=== PATIENT | male | born 1995 | race Caucasian/White ===

== ENCOUNTER → 2018-12-14 | Emergency (ER) | payer SELFPAY ==
[~2018-12-14] VITALS: Ht 175.3 cm; Wt 84.0 kg
[~2018-12-14] MED LIST: HYDROmorphone 1 mg/ml syringe IV PRN; HYDROmorphone inj. 0.5 MG/0.5 ML DISP.SYRIN IV PRN; ONDA4TAB12 PO; diphenhydrAMINE 50 mg/ml inj IV ONE; glycopyrrolate 0.2mg/ml inj IV ONE; metoclopramide 5 mg/ml inj IV ONE; normal saline 1000ML IV soln IVB ONE
[2018-12-14 05:17] LABS: BASOPHILS % (AUTO) 0.1 % (0-1); EOSINOPHILS # (AUTO) 0.1 X10'3 (0-0.9); EOSINOPHILS % (AUTO) 0.7 % (0-6); HEMATOCRIT 49.5 % (42.0-52.0); HEMOGLOBIN 16.9 g/dl (14.0-17.9); LYMPHOCYTES # (AUTO) 0.7 X10'3 (1.1-4.8); LYMPHOCYTES % (AUTO) 5.9 % (21-51); MEAN CORPUSCULAR HEMOGLOBIN 32.5 PG (27.0-31.0); MEAN CORPUSCULAR HGB CONC 34.2 g/dL (33.0-36.5); MEAN CORPUSCULAR VOLUME 94.9 FL (78-98); MEAN PLATELET VOLUME 7.6 FL (7.4-10.4); MONOCYTES # (AUTO) 0.5 X10'3 (0-0.9); MONOCYTES % (AUTO) 3.7 % (2-12); NEUTROPHILS # (AUTO) 11.2 X10'3 (1.8-7.7); NEUTROPHILS % (AUTO) 89.6 % (42-75); PLATELET COUNT 312 X10'3 (140-440); RED BLOOD COUNT 5.22 X10'6 (4.70-6.10); WHITE BLOOD COUNT 12.5 X10'3 (4.5-11.0)
[2018-12-14 05:31] LABS: ALANINE AMINOTRANSFERASE 38 U/L (12-78); ALBUMIN 4.4 G/DL (3.4-5.0); ALBUMIN/GLOBULIN RATIO 1.2 (1.1-1.5); ALKALINE PHOSPHATASE 115 IU/L (46-116); ANION GAP 15 (8-16); ASPARTATE AMINO TRANSFERASE 38 U/L (10-37); BLOOD UREA NITROGEN 12 MG/DL (7-18); BUN/CREATININE RATIO 11.7 (5.4-32.0); CALCIUM 9.1 MG/DL (8.5-10.1); CHLORIDE 104 MMOL/L (99-107); CREATININE 1.03 MG/DL (0.60-1.10); ETHANOL 0.157 GM/DL (0.0-0.010); GLUCOSE 95 MG/DL (70-104); LIPASE 131 U/L (73-393); POTASSIUM 3.8 MMOL/L (3.5-5.1); SODIUM 144 MMOL/L (135-145); TOTAL CARBON DIOXIDE 25.1 MMOL/L (24-32); TOTAL PROTEIN 8.1 G/DL (6.4-8.2); eGFR 89 ML/MIN
[2018-12-14 06:04] VITALS: BP 122/65
== END | disposition home or self-care (01) ==
LOC: ER 04:17
DX: R11.2 Nausea with vomiting, unspecified (principal); R10.13 Epigastric pain; F17.210 Nicotine dependence, cigarettes, uncomplicated; F10.239 Alcohol dependence with withdrawal, unspecified; Z79.899 Other long term (current) drug therapy; Y90.0 Blood alcohol level of less than 20 mg/100 ml
CPT/HCPCS: 36415; 80053; 80320; 83690; 85025; 93005; 96361; 96374; 96375; 99284; J1200; J2765; J7030; J1170; J3490

== ENCOUNTER 2020-11-04 19:17 | Emergency (ER) | payer MEDICAID ==
[~2020-11-04] VITALS: Ht 175.3 cm; Wt 81.0 kg
[~2020-11-04 19:17] MED LIST changes: -HYDROmorphone 1 mg/ml syringe IV PRN; -HYDROmorphone inj. 0.5 MG/0.5 ML DISP.SYRIN IV PRN; -diphenhydrAMINE 50 mg/ml inj IV ONE; -glycopyrrolate 0.2mg/ml inj IV ONE; -metoclopramide 5 mg/ml inj IV ONE; -normal saline 1000ML IV soln IVB ONE
[2020-11-04 19:30] VITALS: BP 124/88
== END 2020-11-04 20:32 ==
LOC: ER 19:18
DX: Z02.89 Encounter for other administrative examinations (principal)
CPT/HCPCS: 99283

== ENCOUNTER 2021-10-21 02:11 | Emergency (ER) | payer MEDICAID ==
[~2021-10-21] VITALS: Ht 175.3 cm; Wt 81.8 kg
[2021-10-21] MEDS ORDERED: ondansetron/PF 4mg/2ml inj IV ONE (03:55)
[2021-10-21] MEDS ORDERED: pantoprazole 40MG/NS 100ML BAG 100 ML IV ONE (03:55)
[2021-10-21] MEDS ORDERED: diazepam inj 5 MG/ML inj. IV ONE (03:55)
[2021-10-21] MEDS ORDERED: pantoprazole 40 MG vial IV ONE (03:55)
[2021-10-21] MEDS ORDERED: normal saline 1000ML IV soln IVB ONE ×2 (03:55)
[2021-10-21 04:47] LABS: BASOPHILS % (AUTO) 0.2 % (0-1); EOSINOPHILS % (AUTO) 0.1 % (0-6); HEMATOCRIT 44.7 % (42.0-52.0); HEMOGLOBIN 15.7 g/dl (14.0-17.9); LYMPHOCYTES # (AUTO) 0.7 X10'3 (1.1-4.8); LYMPHOCYTES % (AUTO) 5.6 % (21-51); MEAN CORPUSCULAR HEMOGLOBIN 31.4 PG (27.0-31.0); MEAN CORPUSCULAR HGB CONC 35.1 g/dL (33.0-36.5); MEAN CORPUSCULAR VOLUME 89.6 FL (78-98); MEAN PLATELET VOLUME 8.1 FL (7.4-10.4); MONOCYTES # (AUTO) 0.9 X10'3 (0-0.9); MONOCYTES % (AUTO) 7.1 % (2-12); NEUTROPHILS # (AUTO) 11.6 X10'3 (1.8-7.7); PLATELET COUNT 284 X10'3 (140-440); RED BLOOD COUNT 4.99 X10'6 (4.70-6.10); RED CELL DISTRIBUTION WIDTH 13.6 % (11.5-14.5); WHITE BLOOD COUNT 13.3 X10'3 (4.5-11.0)
[2021-10-21 05:00] LABS: ALANINE AMINOTRANSFERASE 27 U/L (12-78); ALBUMIN 3.2 G/DL (3.4-5.0); ALBUMIN/GLOBULIN RATIO 0.9 (1.1-1.5); ALKALINE PHOSPHATASE 100 IU/L (46-116); ANION GAP 11 (8-16); ASPARTATE AMINO TRANSFERASE 41 U/L (10-37); BILIRUBIN,TOTAL 2.2 MG/DL (0.1-1.0); BLOOD UREA NITROGEN 14 MG/DL (7-18); BUN/CREATININE RATIO 14.7 (5.4-32.0); CALCIUM 8.3 MG/DL (8.5-10.1); CHLORIDE 102 MMOL/L (99-107); CREATININE 0.95 MG/DL (0.60-1.10); ETHANOL < 0.010 GM/DL (0.0-0.010); GLUCOSE 105 MG/DL (70-104); LIPASE 125 U/L (73-393); POTASSIUM 3.6 MMOL/L (3.5-5.1); SODIUM 138 MMOL/L (135-145); TOTAL CARBON DIOXIDE 25.5 MMOL/L (24-32); TOTAL PROTEIN 6.6 G/DL (6.4-8.2); eGFR > 90 ML/MIN
[2021-10-21 05:18] VITALS: BP 118/65
[2021-10-21] MEDS ORDERED: ONDA8TAB13 PO (05:46)
[2021-10-21] MEDS ORDERED: CHLO25CA10 PO (05:46)
== END 2021-10-21 06:16 | disposition home or self-care (01) ==
LOC: ER 02:11
DX: F10.939 Alcohol use, unspecified with withdrawal, unspecified (principal); F17.200 Nicotine dependence, unspecified, uncomplicated
CPT/HCPCS: 36415; 80053; 80320; 83690; 85025; 96374; 96375; 99284; C9113; J2405; J3360; J7030

== ENCOUNTER 2022-04-23 10:52 | Inpatient (IN) | payer MEDICAID ==
[~2022-04-23] VITALS: Ht 175.3 cm; Wt 81.8 kg
[~2022-04-23 10:52] MED LIST changes: +CHLO25CA10 PO; +ONDA8TAB13 PO
[2022-04-23] MEDS ORDERED: LORazepam 2 mg/ml vial IV ONE (11:25)
[2022-04-23] MEDS ORDERED: normal saline 1000ML IV soln IVB ONE (11:25)
[2022-04-23] MEDS ORDERED: diphenhydrAMINE 50 mg/ml inj IV ONE (11:25)
[2022-04-23] MEDS ORDERED: magnesium 2GM in 50ml NS 50 ML IV ONE (11:25)
[2022-04-23] MEDS ORDERED: metoclopramide 5 mg/ml inj IV ONE (11:25)
[2022-04-23 11:34] LABS: BASOPHILS % (AUTO) 0.1 % (0-1); EOSINOPHILS % (AUTO) 0 % (0-6); HEMATOCRIT 46.4 % (42.0-52.0); HEMOGLOBIN 16.1 g/dl (14.0-17.9); LYMPHOCYTES # (AUTO) 0.5 X10'3 (1.1-4.8); LYMPHOCYTES % (AUTO) 2.8 % (21-51); MEAN CORPUSCULAR HEMOGLOBIN 30.9 PG (27.0-31.0); MEAN CORPUSCULAR HGB CONC 34.7 g/dL (33.0-36.5); MEAN CORPUSCULAR VOLUME 88.9 FL (78-98); MEAN PLATELET VOLUME 7.7 FL (7.4-10.4); MONOCYTES # (AUTO) 1.1 X10'3 (0-0.9); MONOCYTES % (AUTO) 5.7 % (2-12); NEUTROPHILS # (AUTO) 16.9 X10'3 (1.8-7.7); NEUTROPHILS % (AUTO) 91.4 % (42-75); PLATELET COUNT 335 X10'3 (140-440); RED BLOOD COUNT 5.22 X10'6 (4.70-6.10); WHITE BLOOD COUNT 18.5 X10'3 (4.5-11.0)
[2022-04-23 11:45] LABS: ALANINE AMINOTRANSFERASE 98 U/L (12-78); ALKALINE PHOSPHATASE 154 IU/L (46-116); ANION GAP 15 (8-16); ASPARTATE AMINO TRANSFERASE 119 U/L (10-37); BILIRUBIN,TOTAL 5.7 MG/DL (0.1-1.0); BLOOD UREA NITROGEN 21 MG/DL (7-18); BUN/CREATININE RATIO 14.9 (5.4-32.0); CALCIUM 7.7 MG/DL (8.5-10.1); CHLORIDE 78 MMOL/L (99-107); CREATININE 1.41 MG/DL (0.60-1.10); GLUCOSE 223 MG/DL (70-104); LIPASE 1025 U/L (73-393); SODIUM 121 MMOL/L (135-145); TOTAL CARBON DIOXIDE 28.2 MMOL/L (24-32); eGFR 60 ML/MIN
[2022-04-23 11:46] LABS: ALBUMIN/GLOBULIN RATIO 1.2 (1.1-1.5); POTASSIUM 2.3 MMOL/L (3.5-5.1); TOTAL PROTEIN 5.6 G/DL (6.4-8.2)
[2022-04-23] MEDS ORDERED: potassium Cl 40MEQ/1/2NS 520ml 520 ML IV PRN ×2 (12:15→16:30)
[2022-04-23] MEDS ORDERED: magnesium Cl slow-release 64mg tablet PO PRN ×2 (12:15→16:30)
[2022-04-23] MEDS ORDERED: potassium Cl 20 mEq SR tablet PO PRN ×2 (12:15)
[2022-04-23] MEDS ORDERED: magnesium 4gm in 100ml NS 100 ML IV PRN ×2 (12:15→16:30)
[2022-04-23] MEDS ORDERED: iohexol 300mg/ml 100ml inj. ONE (12:46)
[2022-04-23] MEDS ORDERED: NO HOME MEDS (15:05)
[2022-04-23] MEDS ORDERED: ondansetron/PF 4mg/2ml inj IV PRN (16:30)
[2022-04-23] MEDS ORDERED: acetaminophen 325mg tablet PO PRN (16:30)
[2022-04-23] MEDS ORDERED: haloperidol lactate 5mg/ml inj IM PRN (16:30)
[2022-04-23] MEDS ORDERED: dextrose 50%-water 50ml dispensing syringe IV PRN (16:30)
[2022-04-23] MEDS ORDERED: LORazepam 2 mg/ml vial IV PRN (16:30)
[2022-04-23] MEDS: normal saline 1000ml 1,000 ML IV SCH (17:19)
[2022-04-23] MEDS: potassium Cl 20 mEq SR tablet PO PRN ×2 (17:26→22:36)
[2022-04-23] MEDS: thiamine 100mg tablet PO SCH (17:26)
[2022-04-23] MEDS ORDERED: K and/or MAG REPLACEMENT MC SCH (20:00)
--- NOTE | 2022-04-23 20:01 | NUR ---
pt scored 4 on CIWA scale at this time, no ativan needed.
[2022-04-23] MEDS: K and/or MAG REPLACEMENT MC SCH (20:05)
[2022-04-23] MEDS ORDERED: thiamine 100mg/ml 2ml inj. IV SCH (21:00)
[2022-04-23] MEDS: pantoprazole 40MG/NS 100ML BAG 100 ML IV SCH (23:04)
[2022-04-24] VITALS (15 sets, daily range): BP systolic 109–126; BP diastolic 56–92
[2022-04-24] MEDS: pantoprazole 40MG/NS 100ML BAG 100 ML IV SCH ×5 (01:00→20:35)
[2022-04-24] MEDS: normal saline 1000ml 1,000 ML IV SCH ×2 (02:29→22:30)
[2022-04-24 06:16] LABS: ALBUMIN 2.3 G/DL (3.4-5.0); ANION GAP 2 (8-16); BLOOD UREA NITROGEN 16 MG/DL (7-18); BUN/CREATININE RATIO 19.3 (5.4-32.0); CALCIUM 7.2 MG/DL (8.5-10.1); CHLORIDE 93 MMOL/L (99-107); CREATININE 0.83 MG/DL (0.60-1.10); GLUCOSE 94 MG/DL (70-104); MAGNESIUM 2.2 MG/DL (1.5-2.4); POTASSIUM 3.2 MMOL/L (3.5-5.1); SODIUM 128 MMOL/L (135-145); TOTAL CARBON DIOXIDE 32.9 MMOL/L (24-32); eGFR > 90 ML/MIN
[2022-04-24 06:29] LABS: BASOPHILS % (AUTO) 0.1 % (0-1); EOSINOPHILS % (AUTO) 0.2 % (0-6); HEMATOCRIT 37.1 % (42.0-52.0); LYMPHOCYTES # (AUTO) 0.9 X10'3 (1.1-4.8); LYMPHOCYTES % (AUTO) 9.6 % (21-51); MEAN CORPUSCULAR HEMOGLOBIN 31.7 PG (27.0-31.0); MEAN CORPUSCULAR VOLUME 90.4 FL (78-98); MEAN PLATELET VOLUME 7.6 FL (7.4-10.4); MONOCYTES # (AUTO) 0.7 X10'3 (0-0.9); MONOCYTES % (AUTO) 7.7 % (2-12); NEUTROPHILS # (AUTO) 7.8 X10'3 (1.8-7.7); NEUTROPHILS % (AUTO) 82.4 % (42-75); PLATELET COUNT 190 X10'3 (140-440); RED BLOOD COUNT 4.11 X10'6 (4.70-6.10); RED CELL DISTRIBUTION WIDTH 14.1 % (11.5-14.5); WHITE BLOOD COUNT 9.4 X10'3 (4.5-11.0)
[2022-04-24] MEDS: K and/or MAG REPLACEMENT MC SCH ×2 (08:00→20:00)
[2022-04-24] MEDS: folic acid 1mg/0.2ml inj IV SCH (08:36)
[2022-04-24] MEDS: thiamine 100mg tablet PO SCH (08:36)
[2022-04-24] MEDS: potassium Cl 20 mEq SR tablet PO PRN ×3 (08:37→16:45)
[2022-04-24] MEDS: LORazepam 2 mg/ml vial IV PRN ×2 (08:41→20:36)
[2022-04-24] MEDS ORDERED: fentaNYL/PF 50MCG/1 ML 2ML syringe ONE ×2 (15:03→15:23)
[2022-04-24] MEDS ORDERED: MIDAZolam 1 MG/ML 5ML VIAL ONE (15:03)
[2022-04-24] MEDS ORDERED: LIDOcaine Viscous 15ml cup ONE (15:03)
[2022-04-24] MEDS ORDERED: diphenhydrAMINE 50 mg/ml inj ONE (15:14)
--- NOTE | 2022-04-24 18:00 | NUR ---
Patient in room PCU 3026. I have received report from Jana EUCEDA and had the opportunity to ask questions and assume patient care.
--- NOTE | 2022-04-24 18:23 | NUR ---
report given to Sofia, computer scanner broke all of shift, manually entered medications
[2022-04-25 02:00] VITALS: BP 115/72
[2022-04-25] MEDS: pantoprazole 40MG/NS 100ML BAG 100 ML IV SCH ×5 (02:41→20:50)
[2022-04-25] MEDS: normal saline 1000ml 1,000 ML IV SCH ×3 (02:41→15:11)
[2022-04-25] MEDS: LORazepam 2 mg/ml vial IV PRN ×4 (04:10→20:50)
--- NOTE | 2022-04-25 06:27 | NUR ---
Problems reprioritized. Patient report given, questions answered & plan of care reviewed with Jana EUCEDA.
[2022-04-25 06:30] VITALS: BP 105/55
[2022-04-25] MEDS: thiamine 100mg tablet PO SCH (07:18)
[2022-04-25] MEDS: folic acid 1mg/0.2ml inj IV SCH (07:19)
[2022-04-25 07:27] LABS: BASOPHILS % (AUTO) 0.1 % (0-1); EOSINOPHILS # (AUTO) 0.1 X10'3 (0-0.9); EOSINOPHILS % (AUTO) 1.3 % (0-6); HEMATOCRIT 36.7 % (42.0-52.0); HEMOGLOBIN 12.6 g/dl (14.0-17.9); LYMPHOCYTES # (AUTO) 0.8 X10'3 (1.1-4.8); MEAN CORPUSCULAR HEMOGLOBIN 31.5 PG (27.0-31.0); MEAN CORPUSCULAR HGB CONC 34.4 g/dL (33.0-36.5); MEAN CORPUSCULAR VOLUME 91.8 FL (78-98); MEAN PLATELET VOLUME 7.5 FL (7.4-10.4); MONOCYTES # (AUTO) 0.5 X10'3 (0-0.9); MONOCYTES % (AUTO) 6.9 % (2-12); NEUTROPHILS % (AUTO) 80.7 % (42-75); PLATELET COUNT 175 X10'3 (140-440); WHITE BLOOD COUNT 7.4 X10'3 (4.5-11.0)
[2022-04-25 08:02] LABS: ALBUMIN 2.5 G/DL (3.4-5.0); ANION GAP 4 (8-16); BLOOD UREA NITROGEN 11 MG/DL (7-18); BUN/CREATININE RATIO 13.3 (5.4-32.0); CALCIUM 7.2 MG/DL (8.5-10.1); CHLORIDE 97 MMOL/L (99-107); CREATININE 0.83 MG/DL (0.60-1.10); GLUCOSE 82 MG/DL (70-104); POTASSIUM 3.2 MMOL/L (3.5-5.1); SODIUM 132 MMOL/L (135-145); eGFR > 90 ML/MIN
[2022-04-25] MEDS: potassium Cl 20 mEq SR tablet PO PRN ×3 (08:08→16:49)
[2022-04-25] MEDS: K and/or MAG REPLACEMENT MC SCH ×2 (08:55→20:00)
[2022-04-25 10:00] VITALS: BP 122/76
--- NOTE | 2022-04-25 13:03 | NUR ---
Met with patient in regards to alcohol use and to see if he was interested in resources for treatment options. Patient is interested in treatment options. Patient would like to go to an inpatient rehab. I gave patient [facility] number to get process started. I talked to patient about medication to help with cravings. I gave him a card for [facility], so he can start doing outpatient treatment while waiting for a bed. Patient has my card to call me with any questions.
[2022-04-25 13:52] LABS: ALANINE AMINOTRANSFERASE 77 U/L (12-78); ALBUMIN/GLOBULIN RATIO 0.9 (1.1-1.5); ALKALINE PHOSPHATASE 124 IU/L (46-116); ASPARTATE AMINO TRANSFERASE 92 U/L (10-37); BILIRUBIN,DIRECT 0.7 MG/DL (0-0.3); BILIRUBIN,TOTAL 2.5 MG/DL (0.1-1.0); LIPASE 897 U/L (73-393); TOTAL PROTEIN 5.3 G/DL (6.4-8.2)
[2022-04-25 14:00] VITALS: BP 121/69
[2022-04-25 18:00] VITALS: BP 132/70
--- NOTE | 2022-04-25 18:00 | NUR ---
Patient in room PCU 3026. I have received report from Jana EUCEDA and had the opportunity to ask questions and assume patient care.
[2022-04-25 22:00] VITALS: BP 129/54
--- NOTE | 2022-04-26 01:00 | NUR ---
PT PULLED HIS IV AND SAID HE WAS DREAMING OF MULTIPLE ALARMS GOING OFF AND GIVING SEVERE HEADACHE AND WANTED TO SHUT EVERYTHING OFF. PT SAID IF HE DOES NOT NEED ANY IV, HE WOULD RATHER NOT HAVE IT
[2022-04-26 02:00] VITALS: BP 117/69
--- NOTE | 2022-04-26 03:00 | NUR ---
STARTED AN IV ON LEFT AC WITH 20 G, PT TOLERATED WELL.
[2022-04-26] MEDS: normal saline 1000ml 1,000 ML IV SCH (04:30)
[2022-04-26 06:00] VITALS: BP 118/63
[2022-04-26] MEDS: pantoprazole 40MG/NS 100ML BAG 100 ML IV SCH ×4 (06:00→11:24)
[2022-04-26 06:32] LABS: BASOPHILS % (AUTO) 0.4 % (0-1); EOSINOPHILS # (AUTO) 0.1 X10'3 (0-0.9); EOSINOPHILS % (AUTO) 1.5 % (0-6); HEMATOCRIT 32.6 % (42.0-52.0); HEMOGLOBIN 11.3 g/dl (14.0-17.9); LYMPHOCYTES # (AUTO) 0.7 X10'3 (1.1-4.8); LYMPHOCYTES % (AUTO) 11.2 % (21-51); MEAN CORPUSCULAR HGB CONC 34.6 g/dL (33.0-36.5); MEAN CORPUSCULAR VOLUME 92.4 FL (78-98); MEAN PLATELET VOLUME 7.8 FL (7.4-10.4); MONOCYTES # (AUTO) 0.5 X10'3 (0-0.9); MONOCYTES % (AUTO) 8.6 % (2-12); NEUTROPHILS % (AUTO) 78.3 % (42-75); PLATELET COUNT 167 X10'3 (140-440); RED BLOOD COUNT 3.53 X10'6 (4.70-6.10); RED CELL DISTRIBUTION WIDTH 14.6 % (11.5-14.5); WHITE BLOOD COUNT 6.4 X10'3 (4.5-11.0)
--- NOTE | 2022-04-26 06:39 | NUR ---
Problems reprioritized. Patient report given, questions answered & plan of care reviewed with Siri EUCEDA.
--- NOTE | 2022-04-26 06:58 | NUR ---
Patient in room PCU 3026. I have received report from Sofia and had the opportunity to ask questions and assume patient care.
[2022-04-26 07:01] LABS: ALBUMIN 2.3 G/DL (3.4-5.0); ANION GAP 7 (8-16); BLOOD UREA NITROGEN 6 MG/DL (7-18); BUN/CREATININE RATIO 9.8 (5.4-32.0); CALCIUM 7.4 MG/DL (8.5-10.1); CHLORIDE 102 MMOL/L (99-107); CREATININE 0.61 MG/DL (0.60-1.10); GLUCOSE 107 MG/DL (70-104); MAGNESIUM 1.9 MG/DL (1.5-2.4); POTASSIUM 3.5 MMOL/L (3.5-5.1); SODIUM 135 MMOL/L (135-145); TOTAL CARBON DIOXIDE 25.7 MMOL/L (24-32); eGFR > 90 ML/MIN
[2022-04-26] MEDS: K and/or MAG REPLACEMENT MC SCH (08:00)
[2022-04-26] MEDS: folic acid 1mg/0.2ml inj IV SCH (10:33)
[2022-04-26] MEDS: thiamine 100mg tablet PO SCH (10:34)
[2022-04-26] MEDS: LORazepam 2 mg/ml vial IV PRN (11:29)
[2022-04-26] MEDS ORDERED: PANT40SU2 PO (11:54)
--- NOTE | 2022-04-26 13:35 | NUR ---
RE: [place] in [id number], pt requesting a statement indicating he is medically clear to go to a detox center, are you able to adjust the DC to include this? Siri
[2022-04-26] MEDS ORDERED: CHLO25CA10 PO (14:54)
--- NOTE | 2022-04-26 14:56 | NUR ---
Reviewed discharge im Addendum: 04/26/22 at 1459 by Siri Aponte RN Reviewed discharge instructions with patient. Patient verbalized understanding. Patient showered prior to discharge independently, dressed himself and obtained a ride from a friend. Patient requested a note indicating he is cleared to discharge. Patient stated he was going to a detox center in [place] and wanted to have something "written down" so the facility would accept him. Patient gathered his items from his room and was escorted to the elevator so he could be discharged home.
== END 2022-04-26 14:40 | disposition home or self-care (01) | DRG 243 ==
LOC: ER 10:53 → ED HOLD 16:36 → UNDOADMIN 16:36 → PCU 3S 04-24 02:54
PROVIDERS: ADMIT Internal Medicine; ATTEND Internal Medicine
PROC: 0DB58ZX Excision of Esophagus, Via Natural or Artificial Opening Endoscopic, Diagnostic (ICD-10-PCS; principal; 2022-04-24)
PROC: 0DB78ZX Excision of Stomach, Pylorus, Via Natural or Artificial Opening Endoscopic, Diagnostic (ICD-10-PCS; 2022-04-24)
DX: K21.01 Gastro-esophageal reflux disease with esophagitis, with bleeding (principal); N17.0 Acute kidney failure with tubular necrosis; K85.20 Alcohol induced acute pancreatitis without necrosis or infection; E87.1 Hypo-osmolality and hyponatremia; K70.10 Alcoholic hepatitis without ascites; F10.239 Alcohol dependence with withdrawal, unspecified; E86.0 Dehydration; E87.6 Hypokalemia; F17.210 Nicotine dependence, cigarettes, uncomplicated; K59.00 Constipation, unspecified
CPT/HCPCS: 36415; 43239; 74177; 80048; 80053; 80076; 83690; 83735; 84484; 85025; 85610; 86885; 86900; 86901; 87081; 99152; 99153; 99285; A4620; C9113; G0378; J1200; J2060; J2250; J2765; J3010; J3475; J3490; J7030; Q9967